=== PATIENT | male | born 1990 | race Two or more races ===

== ENCOUNTER 2018-03-06 20:56 | Observation (INO) | payer OTHER ==
[~2018-03-06] VITALS: Ht 172.7 cm; Wt 54.4 kg
[2018-03-06 22:39] LABS: Basophils # (auto) 0 uL; Basophils % (auto) 0.2 % (0.0-2.0); Eosinophils # (auto) 0.1 uL; Eosinophils % (auto) 0.8 % (0.0-7.0); Hematocrit 42.2 % (41.0-53.0); Hemoglobin 14.6 g/dL (13.5-17.5); Lymphocytes # (auto) 1.4 uL; Lymphocytes % (auto) 18.4 % (10.0-50.0); Mean Corpuscular Hemoglobin 31.8 pg (28.0-32.0); Mean Corpuscular Hgb Conc. 34.5 g/dL (32.0-36.0); Mean Corpuscular Volume 92.2 fL (80.0-100.0); Monocytes # (auto) 0.3 uL; Monocytes % (auto) 4.3 % (0.0-12.0); Neutrophils # (auto) 5.8 uL; Neutrophils % (auto) 76.3 % (37.0-80.0); Nucleated Red Blood Cells % 0.1 %; Platelet Count (auto) 213 10^3/uL (140-450); Red Blood Cells 4.58 10^6/uL (4.5-5.90); Red Cell Distribution Width 13.5 % (11.8-14.3); White Blood Cell 7.6 10^3/uL (4.4-10.8)
[2018-03-06 23:01] LABS: Acetaminophen < 2.0 ug/mL (10-30); Salicylate < 1.7 mg/dL (2.8-20.0)
[2018-03-06 23:04] LABS: Albumin 3.7 g/dL (3.4-5.0); BUN/Creatinine Ratio 12.5; Bilirubin, Total 0.5 mg/dL (0.2-1.0); Calcium 7.6 mg/dL (8.5-10.1); Magnesium 2.8 mg/dL (1.6-2.6); Total Protein 6.8 g/dL (6.4-8.2)
[2018-03-06 23:08] LABS: Potassium 2.9 mmol/L (3.5-5.1)
[2018-03-06 23:15] LABS: Urine Bacteria FEW /hpf (None Seen); Urine Blood Negative /uL (Negative); Urine Mucus FEW (None Seen); Urine Specific Gravity 1.014 (1.001-1.035); Urine WBC 2 /hpf (0 - 3)
[2018-03-06 23:35] LABS: Amphetamine Screen, Urine POSITIVE (NEGATIVE); Barbiturate Scree,Urine NEGATIVE (NEGATIVE); Benzodiazephine Screen, Urine NEGATIVE (NEGATIVE); Cannabinoid Screen, Urine POSITIVE (NEGATIVE); Cocaine Screen, Urine POSITIVE (NEGATIVE); Opiate Scree,Urine NEGATIVE (NEGATIVE); Phencyclidine Screen, Urine NEGATIVE (NEGATIVE)
[2018-03-06] MEDS ORDERED: SOD CHL 0.45% WITH 20MEQ KCL 1,000 ML IV ONE (23:45)
[2018-03-07 05:11] VITALS: BP 93/54
== END 2018-03-07 05:39 | disposition home or self-care (01) | DRG 443 ==
LOC: ER 20:56 → OVERFLOW 20:57 → ER 03-07 05:39
PROVIDERS: ADMIT Emergency Medicine; ATTEND Emergency Medicine
DX: K72.90 Hepatic failure, unspecified without coma (principal); F10.129 Alcohol abuse with intoxication, unspecified; E87.6 Hypokalemia; E83.51 Hypocalcemia; E83.41 Hypermagnesemia
CPT/HCPCS: 36415; 70450; 71045; 80053; 80307; 80320; 80329; 81001; 82962; 83735; 85025; 96365; 96366; 99285; G0378

== ENCOUNTER 2021-11-03 02:12 | Emergency (ER) | payer SELFPAY ==
[~2021-11-03] VITALS: Ht 172.7 cm; Wt 68.0 kg
[2021-11-03 02:17] VITALS: BP 147/76
== END 2021-11-03 04:00 ==
LOC: EDBD 02:12 → ER 02:21
DX: R41.0 Disorientation, unspecified (principal); F10.10 Alcohol abuse, uncomplicated